=== PATIENT | female | born 1960 | race Caucasian/White ===

== ENCOUNTER 2016-10-10 23:57 | Emergency (ER) | payer OTHER ==
[~2016-10-10] VITALS: Ht 167.6 cm; Wt 84.5 kg
[~2016-10-10 23:57] MED LIST: ATOR10TA65 PO; BENA1TAB13 PO; GLIP-95 PO; LORA10TA3 PO; METF1000 PO
[2016-10-11 00:14] VITALS: Ht 167.6 cm; Wt 84.5 kg
[2016-10-11] MEDS ORDERED: AMO500 PO (01:07)
[2016-10-11] MEDS ORDERED: NAPR-260 PO (01:08)
--- NOTE | 2016-10-11 01:19 | ERD ---
ER Documentation Chief Complaint Date/Time DATE: 10/11/16 TIME: 01:17 Chief Complaint RIGHT TOOTH PAIN HPI This patient is a 56-year-old female presenting to the emergency department for right upper molar pain intermittently for the past month. Symptoms have been worsening over the past week. She has been taking ibuprofen with no relief. She is not able to see her dentist. She denies fevers, chills, or other symptoms currently. ROS All systems reviewed and are negative except as per history of present illness. Medications Home Meds Active Scripts Naproxen* (Naprosyn*) 500 Mg Tablet, 500 MG PO BID Y for PAIN AND/OR INFLAMMATION, #30 TAB Prov:CRIS JETER PA-C 10/11/16 Amoxicillin* (Amoxicillin*) 500 Mg Cap, 500 MG PO TID for 7 Days, #21 CAP Prov:CRIS JETER PA-C 10/11/16 Reported Medications Loratadine* (Loratadine*) 10 Mg Tablet, 10 MG PO DAILY, TAB 06/25/14 Glipizide* (Glipizide*) 10 Mg Tablet, 10 MG PO DAILY, TAB 06/25/14 Benazepril-Hydrochlorothiazide (Benazepril-Hydrochlorothiazide) 20-12.5 Mg Tablet, 1 EACH PO DAILY, TAB 06/25/14 Atorvastatin Calcium (Atorvastatin Calcium) 10 Mg Tab, 10 MG PO HS, TAB 06/25/14 Metformin Hcl* (Metformin Hcl*) 1,000 Mg Tablet, 1000 MG PO WITH BREAKFAST, TAB 06/25/14 Allergies Allergies: Coded Allergies: No Known Allergy (Unverified , 06/25/14) PMhx/Soc History of Surgery: No Anesthesia Reaction: No Hx Neurological Disorder: No Hx Respiratory Disorders: No Hx Cardiac Disorders: Yes (HTN, HIGH CHOLESTEROL) Hx Psychiatric Problems: No Hx Miscellaneous Medical Probl: No Hx Alcohol Use: No Hx Substance Use: No Hx Tobacco Use: No Smoking Status: Never smoker Physical Exam Vitals Vital Signs Date Time Temp Pulse Resp B/P Pulse Ox O2 Delivery O2 Flow Rate FiO2 10/11/16 00:14 96.7 64 18 149/77 97 Physical Exam Const: Nontoxic, well-appearing female in no acute distress. Head: Atraumatic Eyes: Normal Conjunctiva ENT: Normal External Ears, Nose and Mouth. The mouth shows poor dentition, gingivitis, inflammation around the right upper molars. Neck: Full range of motion..~ No meningismus. Skin: No petechiae or rashes Back: No midline or flank tenderness Ext: No cyanosis, or edema Neur: Awake and alert Psych: Normal Mood and Affect Procedures/MDM 56-year-old female presents to the emergency department with complaints of right upper molar pain intermittently for the past month. On physical examination the patient does have gingivitis with poor dentition. I will cover the patient with a prescription for amoxicillin in case dental abscess is present. She is also given a prescription for naproxen. I do not believe she requires further workup or treatment in the department. She agrees with the discharge plan and diagnosis. Close follow-up with the primary care physician and the dentist advised. Departure Diagnosis: Primary Impression: Toothache Condition: Fair Patient Instructions: Dental Pain Additional Instructions: Necesita hacer devora erica con seo dentista. No mas mejor en 2-3 hogue, regresar. Mas peor en 24 horas, regresear rapidamente. Ir a doctor primario in 5-7 hogue. Usar instrucciones cuando raudel medicamento. CRIS JETER PA-C Oct 11, 2016 01:19
== END 2016-10-11 01:37 | disposition home or self-care (01) ==
LOC: FTE 23:57
DX: K08.89 Other specified disorders of teeth and supporting structures (principal); I10 Essential (primary) hypertension; Z79.84 Long term (current) use of oral hypoglycemic drugs
CPT/HCPCS: 99283

== ENCOUNTER 2017-09-22 10:42 | Emergency (ER) | END 2017-09-22 11:54 | disposition home or self-care (01) ==